=== PATIENT | female | born 1975 | race Caucasian/White ===

== ENCOUNTER 2018-03-20 22:27 | Emergency (ER) | payer MEDICAID ==
[~2018-03-20] VITALS: Ht 157.5 cm; Wt 83.0 kg
[2018-03-21] MEDS ORDERED: KETOROLAC 30MG/ML VIAL IV STA (01:11)
[2018-03-21] MEDS ORDERED: FAMOTIDINE 20MG/2ML VIAL IV STA (01:11)
[2018-03-21] MEDS ORDERED: SODIUM CHLORIDE 0.9% 1,000 ML IV ONE (01:11)
[2018-03-21] MEDS ORDERED: ONDANSETRON HCL 4MG/2ML INJ IV STA (01:11)
[2018-03-21 01:55] LABS: BASOPHILS % 0.4 % (0.0-2.0); EOSINOPHILS % 1.8 % (0.0-5.0); HEMATOCRIT. 39.2 % (36.0-48.0); HEMOGLOBIN. 13.1 g/dL (12.0-16.0); LYMPHOCYTES % 13.2 % (20.0-50.0); MEAN CORPUSCULAR HEMOGLOBIN 29.5 pg (28.0-32.0); MEAN PLATELET VOLUME 8.9 fl (7.4-10.4); MONOCYTES % 6.4 % (2.0-8.0); NEUTROPHILS % 78.2 % (40.0-76.0); PLATELET 281 x1000/uL (130-400); RED BLOOD CELL COUNT 4.45 mill/uL (4.2-5.4); RED CELL DISTRIBUTION WIDTH 13.7 % (11.6-14.6)
[2018-03-21 02:02] LABS: CHLORIDE 103 mEq/L (98-107)
[2018-03-21 02:34] LABS: INR 1.1; PROTHROMBIN TIME 11.4 sec (9.1-11.1)
[2018-03-21] MEDS ORDERED: MORPHINE SULFATE 4 MG/ML CPJ (NOT FOR IM USE) IV ONE (02:45)
[2018-03-21] MEDS ORDERED: METOCLOPRAMIDE HCL 10MG/2ML VIAL IV ONE (02:45)
[2018-03-21 03:09] LABS: CLARITY URINE TURBID (CLEAR); COLOR URINE YELLOW (YELLOW); KETONES URINE NEGATIVE (NEGATIVE); LEUKOCYTE ESTERASE URINE NEGATIVE (NEGATIVE); NITRITE URINE NEGATIVE (NEGATIVE); OCCULT BLOOD URINE NEGATIVE (NEGATIVE); PH URINE 8.5 (4.5-8.0); PROTEIN URINE NEGATIVE (NEGATIVE); SPECIFIC GRAVITY URINE 1.023 (1.005-1.030)
[2018-03-21 03:37] LABS: HCG SCREEN NEGATIVE
[2018-03-21 04:59] VITALS: BP 100/59
== END 2018-03-21 05:30 | disposition home or self-care (01) ==
LOC: ER 22:27
DX: N23 Unspecified renal colic (principal); K76.0 Fatty (change of) liver, not elsewhere classified; R11.2 Nausea with vomiting, unspecified; D17.71 Benign lipomatous neoplasm of kidney; Z88.0 Allergy status to penicillin
CPT/HCPCS: 36415; 74176; 80053; 81003; 83690; 84484; 84703; 85025; 85610; 93005; 96361; 96374; 96375; 99285; J1885; J2270; J2405; J2765; J3490; J7030